=== PATIENT | female | born 1975 | race Hispanic/Latino ===

== ENCOUNTER 2020-09-25 08:40 | Outpatient (CLI) | payer OTHER | END 2020-09-25 08:41 | disposition home or self-care (01) | LOC: CSHWCC 08:40 | PROVIDERS: ATTEND Nurse Practitioner Family | DX: I87.2 Venous insufficiency (chronic) (peripheral) (principal); E11.9 Type 2 diabetes mellitus without complications; J45.21 Mild intermittent asthma with (acute) exacerbation; D64.9 Anemia, unspecified; E65 Localized adiposity; I10 Essential (primary) hypertension; R60.0 Localized edema | CPT/HCPCS: 99203; G0463 ==

== ENCOUNTER 2021-12-01 08:53 | Outpatient (CLI) | payer BC | END 2021-12-01 08:54 | disposition home or self-care (01) | LOC: CSHCT 08:53 | PROVIDERS: ATTEND Internal Medicine Hematology & Oncology | DX: C56.1 Malignant neoplasm of right ovary (principal); D50.8 Other iron deficiency anemias; Z14.8 Genetic carrier of other disease | CPT/HCPCS: 74177 ==

== ENCOUNTER 2024-06-26 09:22 | Day surgery (SDC) | payer BC ==
[2024-06-23 13:29] VITALS: BMI 47.9
[2024-06-26] MEDS ORDERED: Lidocaine 1% PF 5 ML VIAL ONE ×2 (10:07→11:49)
[2024-06-26] MEDS ORDERED: Bupivacaine/Epinephrine 0.25% 30 ML VIAL ONE (10:08)
[2024-06-26] MEDS ORDERED: Fentanyl 100 MCG/2 ML VIAL ONE ×2 (11:30→11:49)
[2024-06-26] MEDS ORDERED: CEFAZOLIN 2 GM VIAL ONE (11:43)
[2024-06-26] MEDS ORDERED: Midazolam HCl 2 mg/2 ml Vial ONE (11:48)
[2024-06-26] MEDS ORDERED: Ondansetron PF 4 MG/2 ML Vial ONE (11:49)
[2024-06-26] MEDS ORDERED: PROPOFOL 20 ML ONE (11:49)
[2024-06-26 11:54] LABS: #Basophils Less than 0.03 10x3/uL (0.0-0.2); #Eosinophils 0.11 10x3/uL (0.0-0.5); #Neutrophils 2.42 10x3/uL (1.5-8.4); %Basophils 0.4 % (0.0-2.0); %Eosinophils 2.3 % (0.0-6.0); %Lymphocytes 35.4 % (18.0-47.0); %Monocytes 10.5 % (0.0-10.0); %Neutrophils 51.2 % (40.0-75.0); Hematocrit 37.1 % (34.9-44.5); Hemoglobin 12.5 g/dL (12.0-15.5); Mean Corpuscular HGB CONC 33.7 g/dL (32.0-36.0); Mean Corpuscular Hemoglobin 31.7 pg (27.0-33.0); Mean Corpuscular Volume 94.2 fL (81.6-98.3); Mean Platelet Volume 10.1 fL (7.4-10.4); Platelet Count 218 10x3/uL (150-450); RBC Distribution Width 12.1 % (11.5-14.5); Red Blood Cell (RBC) Count 3.94 10x6/uL (3.90-5.03); White Blood Cell (WBC) Count 4.74 10x3/uL (3.5-10.5)
[2024-06-26 12:08] LABS: ALT (SGPT) 14 U/L (Less than 34); AST (SGOT) 18 U/L (11-34); Albumin 3.9 g/dL (3.1-4.5); Alkaline Phosphatase 49 U/L (40-110); Anion Gap 10 mmol/L (10-20); BUN (Urea Nitrogen) 13 mg/dL (7.0-18.7); Bilirubin, Direct 0.1 mg/dL (0.1-0.3); Bilirubin, Total 0.3 mg/dL (0.3-1.2); Calc. Creatinine Clearance 185 mL/min (70-130); Calcium 9.1 mg/dL (7.8-10.44); Carbon Dioxide 27 mmol/L (22-29); Chloride 105 mmol/L (98-107); Estimated GFR 99; Glucose 87 mg/dL (70-105); Potassium 3.9 mmol/L (3.5-5.1); Protein, Total 7.5 g/dL (6.0-8.3); Sodium 138 mmol/L (136-145)
[2024-06-26] MEDS ORDERED: fentaNYL 50 mcg/mL 1 mL Vial ONE (13:11)
[2024-06-26] MEDS ORDERED: HYDROcodone/Acetaminophen 5/325 mg Tablet ONE (13:44)
== END 2024-06-26 14:00 | disposition home or self-care (01) ==
LOC: CSHSDC 09:22
PROVIDERS: ATTEND Surgery
PROC: 0JH60WZ Insertion of Totally Implantable Vascular Access Device into Chest Subcutaneous Tissue and Fascia, Open Approach (ICD-10-PCS; principal; 2024-06-26)
DX: C56.9 Malignant neoplasm of unspecified ovary (principal); C78.6 Secondary malignant neoplasm of retroperitoneum and peritoneum; I10 Essential (primary) hypertension; E11.9 Type 2 diabetes mellitus without complications; D64.9 Anemia, unspecified; K21.9 Gastro-esophageal reflux disease without esophagitis; M79.7 Fibromyalgia; J45.909 Unspecified asthma, uncomplicated; E66.9 Obesity, unspecified; Z68.42 Body mass index [BMI] 45.0-49.9, adult; Z98.51 Tubal ligation status; Z98.84 Bariatric surgery status; Z90.89 Acquired absence of other organs; Z90.710 Acquired absence of both cervix and uterus; Z88.8 Allergy status to other drugs, medicaments and biological substances; Z79.51 Long term (current) use of inhaled steroids; Z79.85 Long-term (current) use of injectable non-insulin antidiabetic drugs; Z79.899 Other long term (current) drug therapy
CPT/HCPCS: 36415; 71045; 80048; 80076; 85025; 93005; 93010; C1788; J1642; J2250; J2405; J2704; J3010

== ENCOUNTER 2024-06-29 13:54 | Outpatient (CLI) | payer BC | END 2024-06-29 13:55 | disposition home or self-care (01) | LOC: CSHULT 13:54 | PROVIDERS: ATTEND Internal Medicine Hematology & Oncology | DX: C56.1 Malignant neoplasm of right ovary (principal); D50.8 Other iron deficiency anemias; Z14.8 Genetic carrier of other disease; R93.1 Abnormal findings on diagnostic imaging of heart and coronary circulation ==